=== PATIENT | female | born 1950 | race Caucasian/White ===

== ENCOUNTER 2018-05-31 06:12 | Emergency (ER) | payer OTHER, BC ==
--- NOTE | 2018-05-31 06:22 | PDOC ---
History of Present Illness - General Chief Complaint: Pain Stated Complaint: RT ANKLE PAIN Time Seen by Provider: 05/31/18 06:20 History Source: Patient Exam Limitations: No Limitations - History of Present Illness Initial Comments: 05/31/18 06:42 68 YOF with h/o gouty arthritis, osteoarthritis, lymphedema on lasix presenting with progressive right ankle pain and swelling x 2 days, feeling similar to prior episodes of gouty flares. prior attacks in MTP joint. denies etoh, shelfish consumption, red meats or other food precipitants. denies trauma or falls, but was walking around more several days ago at [facility] [place]. no f/c, weakness or paresthesia. she took some old rx of colchicine 0.6mg without relief. 05/31/18 06:43 05/31/18 06:45 Past History - Past Medical History Allergies/Adverse Reactions: Allergies Allergy/AdvReac Type Severity Reaction Status Date / Time No Known Drug Allergies Allergy Verified 06/01/13 10:35 Home Medications: Ambulatory Orders Furosemide [Lasix -] 40 mg PO DAILY 05/28/13 Krill Oil 500 mg PO DAILY 05/28/13 Multivitamin [Multivitamins] 1 each PO DAILY 05/28/13 Ubidecarenone [Coq-10] 100 mg PO DAILY 05/28/13 Colchicine [Colcrys] 0.6 mg PO BID PRN 05/31/18 Naproxen [Naprosyn -] 500 mg PO BID PRN #20 tablet 05/31/18 Potassium Chloride [Klor-Con 10] 10 meq PO Q2D 05/31/18 Prednisone [Prednisone 50 MG TABLETS] 50 mg PO DAILY 4 Days #4 tablet 05/31/18 Anemia: No Asthma: No Cancer: No Cardiac Disorders: No CVA: No COPD: No CHF: No Dementia: No Diabetes: No GI Disorders: No Disorders: No HTN: No Hypercholesterolemia: Yes Liver Disease: No Seizures: No Thyroid Disease: No - Surgical History Abdominal Surgery: No Appendectomy: No Cardiac Surgery: No Cholecystectomy: No Lung Surgery: No Neurologic Surgery: No Orthopedic Surgery: No - Suicide/Smoking/Psychosocial Hx Smoking History: Never smoked Have you smoked in the past 12 months: No Hx Alcohol Use: No Drug/Substance Use Hx: No Substance Use Type: None Hx Substance Use Treatment: No Review of Systems - Review of Systems Able to Perform ROS?: Yes Comments:: 05/31/18 06:44 Constitutional: no fevers or chills. MUSCULOSKELETAL: +joint pain and swelling. No neck or back pain. SKIN: no redness or skin changes, no discharge, no rash. No wounds. Hematologic: no easy bruising/bleeding. NEUROLOGIC: No weakness, numbness or tingling. All other systems reviewed and negative, or as documented in HPI. *Physical Exam - Physical Exam Comments: 05/31/18 06:44 General: NAD, well appearing Vascular: 2+ DP pulses symmetric and equal. Back: FROM MSK: soft compartments, Cap refill <2 sec, palp swelling to right laterall malleoli, mild warmth, mild tenderness to palp. Extrem: +left pretibial 1+ pitting edema; no calf or proximal leg tenderness bilaterally. no edema to right lower extrem. Neuro: Proximal and distal strength 5/5, - equal and symmetric. Plantar flexion and dorsiflexion 5/5. FROM. Sensation grossly intact to light touch. Skin: color normal color, warm and well perfused. mild warmth to right lateral malleoli 05/31/18 06:45 Medical Decision Making - Medical Decision Making 05/31/18 06:47 Vital Signs Temp Pulse Resp BP Pulse Ox 99 F 90 18 114/68 97 05/31/18 06:27 05/31/18 06:27 05/31/18 06:27 05/31/18 06:27 05/31/18 06:27 68 YOF with arthritis and lymphedema p/w right ankle pain and swelling x 2 days , appearing similar to prior gouty arthritis vitals wnl, reviewed given ibuprofen and prednisone, no h/o renal or hepatic insufficiency. no other comorbidities to increase side effect profile. exam c/w ankle swelling, will treat as arthritis vs gout flare. no palp effusion to tap. does not appear like septic arthritis, no systemic findings or significant skin/toxic changes to suggest so XR foot and ankle ordered to eval for bony abnormalities/effusion gait stable, ambulatory. instructions on supportive care, ambulate as tolerated, analgesia with naproxen (less GI effects) and prednisone for anti inflammation; no h/o renal or GI complications. DC home in stable condition, PCP follow up, as documented medical records. 05/31/18 06:54 *DC/Admit/Observation/Transfer Diagnosis at time of Disposition: Right ankle swelling, Gout - Discharge Dispostion Disposition: HOME Condition at time of disposition: Stable Decision to Admit order: No - Prescriptions Prescriptions: Naproxen [Naprosyn -] 500 mg PO BID PRN #20 tablet PRN Reason: Pain Prednisone [Prednisone 50 MG TABLETS] 50 mg PO DAILY 4 Days #4 tablet - Referrals Referrals: Bill Locke MD [Primary Care Provider] - - Patient Instructions Printed Discharge Instructions: DI for Gout, DI for Osteoarthritis, DI for Ankle Pain Additional Instructions: you are to take naprosyn twice a day as needed for pain, take with food prednisone is steroids with anti inflammatory properties, also take with food for 4 more days. avoid food precipitants, red meats, shellfish, alcohol that could trigger a gouty attack avoid strenuous activity, long walks or increased activity, you may walk and perform activities as tolerated. a note has been provided in case you need it follow up with your primary doctor. - Post Discharge Activity Forms/Work/School Notes: Back to Work
[2018-05-31 06:31] VITALS: BP 114/68; PULSE 90; TEMP 99; BMI 48.4
[2018-05-31] MEDS ORDERED: IBUPROFEN 600 MG TABLET (FP) PO ONE ×2 (06:34→06:38)
[2018-05-31] MEDS ORDERED: predniSONE 20 MG TABLET (UD) PO ONE (06:41)
[2018-05-31] MEDS ORDERED: predniSONE 20 MG TABLET (UD) ONE (06:46)
== END 2018-05-31 08:20 | disposition home or self-care (01) ==
LOC: FER 06:12
DX: M10.9 Gout, unspecified (principal); E78.00 Pure hypercholesterolemia, unspecified; I89.0 Lymphedema, not elsewhere classified
CPT/HCPCS: 73610-TC-RT-FY; 73630-TC-RT-FY; 99282-25